=== PATIENT | male | born 1950 | race Two or more races ===

== ENCOUNTER 2017-08-26 08:07 | Emergency (ER) | payer OTHER ==
[~2017-08-26] VITALS: Ht 170.2 cm; Wt 96.3 kg
[2017-08-26 08:15] VITALS: BP 163/90; Ht 170.2 cm; Wt 96.3 kg
== END 2017-08-26 11:20 | disposition home or self-care (01) ==
LOC: ED 08:07
DX: M10.9 Gout, unspecified (principal); M25.522 Pain in left elbow; G89.29 Other chronic pain; M54.9 Dorsalgia, unspecified; N40.0 Benign prostatic hyperplasia without lower urinary tract symptoms; E03.9 Hypothyroidism, unspecified; I10 Essential (primary) hypertension; E78.00 Pure hypercholesterolemia, unspecified
CPT/HCPCS: J1885

== ENCOUNTER 2018-05-26 22:22 | Emergency (ER) | payer OTHER ==
[~2018-05-26] VITALS: Ht 170.2 cm; Wt 96.2 kg
[2018-05-26 23:00] VITALS: Ht 170.2 cm; Wt 96.2 kg
[2018-05-27 00:41] VITALS: BP 146/91
== END 2018-05-27 00:41 | disposition home or self-care (01) ==
LOC: ED 22:22
DX: L72.8 Other follicular cysts of the skin and subcutaneous tissue (principal); I10 Essential (primary) hypertension; M10.9 Gout, unspecified; F43.10 Post-traumatic stress disorder, unspecified; Z98.890 Other specified postprocedural states
CPT/HCPCS: A4570; J1885

== ENCOUNTER 2018-05-31 18:36 | Emergency (ER) | payer OTHER ==
[~2018-05-31] VITALS: Ht 170.2 cm; Wt 98.4 kg
[2018-05-31 18:38] VITALS: Ht 170.2 cm; Wt 98.4 kg
[2018-05-31 20:30] LABS: C REACTIVE PROTEIN 0.5 mg/dL (<=0.9); URIC ACID 5.4 mg/dL (3.5-7.2)
[2018-05-31 21:06] LABS: BASOPHIL % 0.6 % (0-2); PLATELET COUNT 291 x10^3mcL (130-400); RED CELL DISTRIBUTION WIDTH 13.3 % (11.5-14.5)
[2018-05-31 21:16] LABS: CALCIUM 8.8 mg/dL (8.5-10.1); CARBON DIOXIDE 23.9 mmol/L (21-32); CHLORIDE SERUM 101 mmol/L (98-107); CREATININE SERUM 1.1 mg/dL (0.7-1.3); GFR1 > 60 mL/min; GLUCOSE SERUM 111 mg/dL (74-106); POTASSIUM SERUM 3.6 mmol/L (3.5-5.1); SODIUM SERUM 138 mmol/L (136-145)
[2018-05-31 21:21] LABS: ALBUMIN 4.2 g/dL (3.4-5.0); ALKALINE PHOSPHATASE 127 U/L (46-116); ALT/SGPT 37 U/L (16-63); AST/SGOT 26 U/L (15-37); BILIRUBIN TOTAL 0.23 mg/dL (0.20-1.00); TOTAL PROTEIN, SERUM 7.9 g/dL (6.4-8.2)
[2018-05-31 22:23] VITALS: BP 129/94
== END 2018-05-31 22:23 | disposition home or self-care (01) ==
LOC: ED 18:36
PROVIDERS: Emergency Medicine
DX: M10.031 Idiopathic gout, right wrist (principal); I10 Essential (primary) hypertension; Z98.890 Other specified postprocedural states
CPT/HCPCS: 36415; J1885

== ENCOUNTER 2018-07-27 17:03 | Emergency (ER) | payer OTHER ==
[~2018-07-27] VITALS: Ht 170.2 cm; Wt 99.8 kg
[2018-07-27 17:32] VITALS: BP 146/98; Ht 170.2 cm; Wt 99.8 kg
== END 2018-07-27 21:41 | disposition home or self-care (01) ==
LOC: ED 17:03
DX: M54.6 Pain in thoracic spine (principal); G89.29 Other chronic pain; I10 Essential (primary) hypertension; Z98.890 Other specified postprocedural states; Z88.8 Allergy status to other drugs, medicaments and biological substances
CPT/HCPCS: J2270

== ENCOUNTER 2018-10-30 10:04 | Emergency (ER) | payer OTHER ==
[~2018-10-30] VITALS: Ht 170.2 cm; Wt 101.2 kg
[2018-10-30 10:24] VITALS: Ht 170.2 cm; Wt 101.2 kg
[2018-10-30 12:13] VITALS: BP 115/65
== END 2018-10-30 12:13 | disposition home or self-care (01) ==
LOC: ED 10:04
DX: H61.22 Impacted cerumen, left ear (principal); I10 Essential (primary) hypertension; Z88.6 Allergy status to analgesic agent; Z88.5 Allergy status to narcotic agent; Z98.890 Other specified postprocedural states

== ENCOUNTER 2019-01-05 17:37 | Emergency (ER) | payer OTHER ==
[~2019-01-05] VITALS: Ht 170.2 cm; Wt 91.6 kg
[2019-01-05 17:44] VITALS: BP 136/98; Ht 170.2 cm; Wt 91.6 kg
== END 2019-01-05 21:27 | disposition left against medical advice (07) ==
LOC: ED 17:37
DX: Z53.21 Procedure and treatment not carried out due to patient leaving prior to being seen by health care provider (principal)

== ENCOUNTER 2019-01-06 01:15 | Emergency (ER) | payer OTHER ==
[~2019-01-06] VITALS: Ht 167.6 cm; Wt 93.0 kg
[2019-01-06 01:21] VITALS: Ht 167.6 cm; Wt 93.0 kg
[2019-01-06 02:24] LABS: BASOPHIL % 0.3 % (0-2); PLATELET COUNT 344 x10^3mcL (130-400); RED CELL DISTRIBUTION WIDTH 12.4 % (11.5-14.5)
[2019-01-06 02:26] LABS: CALCIUM 9.5 mg/dL (8.5-10.1); CHLORIDE SERUM 102 mmol/L (98-107); CREATININE SERUM 1.7 mg/dL (0.7-1.3); GFR1 43 mL/min; GLUCOSE SERUM 119 mg/dL (74-106); POTASSIUM SERUM 3.6 mmol/L (3.5-5.1); SODIUM SERUM 142 mmol/L (136-145)
[2019-01-06 02:42] LABS: ALBUMIN 4.6 g/dL (3.4-5.0); ALKALINE PHOSPHATASE 104 U/L (46-116); ALT/SGPT 31 U/L (16-63); AST/SGOT 30 U/L (15-37); BILIRUBIN TOTAL 0.7 mg/dL (0.20-1.00)
[2019-01-06 02:44] LABS: TOTAL PROTEIN, SERUM 8.3 g/dL (6.4-8.2)
[2019-01-06 05:44] LABS: AMPHETAMINE QUAL UR NONE DETECTED (See below)
--- NOTE | 2019-01-06 07:10 | NUR ---
[facility] still actively working on finding placement for this pt. Per scene shifter no openings overnight. Will f/u with facilities. Will contact with any update.
--- NOTE | 2019-01-06 11:34 | NUR ---
Contacted [facility] regarding placement, states they will review packet, and see if they are contracted with insurance carve out. Contacted [facility]: states they will review packet and get back to us regarding placement. Will continue to f/u with facilities. Will contact with any update.
--- NOTE | 2019-01-06 16:10 | NUR ---
F/u with facilities: [facility]: s/w Esper[place], states they do not have a bed at this time. Will call back, they are going over potential openings for later today/tonight. [facility]:s/w [facility], states they are going to review packet and follow up if they can accomodate pt.
--- NOTE | 2019-01-06 19:39 | NUR ---
[facility] NOC shift is still aware of patient and will continue to call contracted psych facilties for bed placement.
[2019-01-06 20:22] LABS: CALCIUM 8.7 mg/dL (8.5-10.1); CARBON DIOXIDE 28.9 mmol/L (21-32); CREATININE SERUM 1.7 mg/dL (0.7-1.3); POTASSIUM SERUM 3.6 mmol/L (3.5-5.1)
[2019-01-06 20:27] LABS: ALBUMIN 3.7 g/dL (3.4-5.0); BILIRUBIN TOTAL 0.29 mg/dL (0.20-1.00)
--- NOTE | 2019-01-06 22:59 | NUR ---
Follow up call was made with [facility] and spoke with Salvatore. Patient has been accepted to: [address] Room [address] accepting Dr[address] Sidhu report # [phone] ext [phone] [facility] will arrange for transport
[2019-01-06 23:49] VITALS: BP 130/84
== END 2019-01-07 01:31 | disposition short-term general hospital (02) ==
LOC: ED 01:15
PROVIDERS: Emergency Medicine
DX: F32.9 Major depressive disorder, single episode, unspecified (principal); G89.29 Other chronic pain; M54.9 Dorsalgia, unspecified; F11.23 Opioid dependence with withdrawal; I10 Essential (primary) hypertension; Z98.890 Other specified postprocedural states; Z88.6 Allergy status to analgesic agent
CPT/HCPCS: G0480; J1885; J2060; J7030; Q0162; Q0177

== ENCOUNTER 2019-03-19 16:39 | Emergency (ER) | payer OTHER ==
[2019-03-19 17:02] VITALS: Ht 172.7 cm
[2019-03-19 17:22] LABS: BASOPHIL % 0.1 % (0-2); RED CELL DISTRIBUTION WIDTH 13.7 % (11.5-14.5)
[2019-03-19 17:23] LABS: PLATELET COUNT 404 x10^3mcL (130-400)
[2019-03-19 17:36] LABS: CALCIUM 9.3 mg/dL (8.5-10.1); CARBON DIOXIDE 25.3 mmol/L (21-32); CHLORIDE SERUM 103 mmol/L (98-107); GFR1 > 60 mL/min; GLUCOSE SERUM 106 mg/dL (74-106); POTASSIUM SERUM 3.5 mmol/L (3.5-5.1); SODIUM SERUM 138 mmol/L (136-145)
[2019-03-19 17:41] LABS: ALBUMIN 3.6 g/dL (3.4-5.0); ALKALINE PHOSPHATASE 95 U/L (46-116); ALT/SGPT 22 U/L (16-63); AST/SGOT 12 U/L (15-37); BILIRUBIN TOTAL 0.35 mg/dL (0.20-1.00); TOTAL PROTEIN, SERUM 8.5 g/dL (6.4-8.2)
[2019-03-19 19:59] VITALS: BP 132/91
== END 2019-03-19 19:59 | disposition home or self-care (01) ==
LOC: ED 16:39
PROVIDERS: Emergency Medicine
DX: F41.9 Anxiety disorder, unspecified (principal); I10 Essential (primary) hypertension; Z98.890 Other specified postprocedural states; Z88.6 Allergy status to analgesic agent; Z88.5 Allergy status to narcotic agent
CPT/HCPCS: 36415; G0480; Q0092